=== PATIENT | female | born 1985 | race Caucasian/White ===

== ENCOUNTER → 2019-10-05 07:46 | Outpatient (CLI) | payer OTHER, SELFPAY ==
--- NOTE | ~2019-10-05 | MMUS_ITS ---
EXAMINATION: MM diagnostic vani BI w dulce, US breast LT limited HISTORY: Palpable lump of the upper inner quadrant of the left breast TECHNIQUE: Craniocaudal, mediolateral, and mediolateral oblique 3-D tomosynthesis images of the breas ts were performed and synthetic 2-D images were generated. And spot compression views of the left leonard ast are also obtained. CAD analysis was submitted and interpreted. High resolution limited left breas t ultrasound was performed. COMPARISON: None, baseline BREAST PARENCHYMAL COMPOSITION: The breasts are extremely dense, which lowers the sensitivity of mamm ography. FINDINGS: MAMMOGRAPHIC FINDINGS: Right breast: There is no evidence of suspicious mass, calcification, or architectural distortion to suggest malignancy. Left breast: There is an approximately 2.1 x 1.7 cm oval, obscured, equal density mass in the anterio r third of the inner breast at the 9:00 location corresponding to the palpable abnormality of concern . No associated architectural distortion or suspicious calcification are identified. ULTRASOUND: There is a 2.0 x 1.3 cm oval, circumscribed, parallel, hypoechoic mass with no posterior features or internal vascularity at the 10:00 location 2 cm from the nipple corresponding to the palpable abnorma lity of concern. IMPRESSION: 1. Left breast mass corresponding to the palpable abnormality of concern. 2. Ultrasound-guided left breast biopsy is recommended. BI-RADS category 4, suspicious findings. Reviewed, dictated and finalized at location A. IMPRESSION: 1. Left breast mass corresponding to the palpable abnormality of concern. 2. Ultrasound-guided left breast biopsy is recommended. BI-RADS category 4, suspicious findings.
== END ==
PROVIDERS: Visit Provider Obstetrics & Gynecology
DX: N63.22 Unspecified lump in the left breast, upper inner quadrant (principal); R92.8 Other abnormal and inconclusive findings on diagnostic imaging of breast
CPT/HCPCS: 76642; 77062; 77066; G0279

== ENCOUNTER 2020-01-08 14:31 | Emergency (ER) | payer OTHER, SELFPAY ==
--- NOTE | ~2020-01-08 | CT_ITS ---
EXAMINATION: CT abdomen pelvis w con DATE: 01/08/2020 16:11 INDICATION: Low abdominal pain. TECHNIQUE: Computed tomography (CT) of the abdomen and pelvis was performed with 100 mL Omnipaque 350 intravenous contrast. Automated exposure control and iterative reconstruction technique were employe d. The dose-length product was 328.67 mGy-cm. COMPARISON: None. FINDINGS: The visualized portions of the lung bases are clear without pneumonia or pleural effusion. The heart size is normal. No pericardial effusion. The liver, gallbladder, spleen, pancreas, adrenal glands, and kidneys are normal. There are no dilated loops of bowel. The appendix is normal. There is a small umbilical hernia containing fat. There are no pathologically enlarged lymph nodes. There is no free intraperitoneal fluid. There is mild lumbar spondylosis. IMPRESSION: 1. Small umbilical hernia containing fat. Reviewed, dictated and finalized at location A.
[2020-01-08 14:37] VITALS: BP 127/81; PULSE 112; RESP 18; TEMP 37.4; O2SAT 100
--- NOTE | 2020-01-08 15:00 | ED.ABDPAIN ---
HPI - Abdominal Pain General Chief Complaint: Abdominal Pain Stated Complaint: abdominal pain Time Seen by Provider: 01/08/20 14:42 Source: patient Mode of arrival: ambulatory Limitations: no limitations History of Present Illness HPI narrative: This patient is a 34 year old female who presents for evaluation of GI symptoms. She reports she has been having diarrhea intermittently for 3-4 weeks. She denies bloody diarrhea or fever. She does reports nausea whenever she eats. She also has intermittent sharp pelvic pain. She was evaluated by her fishing reel assembler regarding pelvic pain and she was having vaginal pain as well. She states her vaginal pain resolved but she thinks it has now moved to rectal pain. She denies rectal bleeding but she report intermittent throbbing discomfort. MD elicited complaint: abdominal pain Related Data Home Medications Medication Instructions Recorded Confirmed buspirone 10 mg PO DAILY 01/08/20 Allergies Allergy/AdvReac Type Severity Reaction Status Date / Time No Known Allergies Allergy Verified 01/08/20 14:39 Review of Systems Review of Systems: All systems reviewed & are unremarkable except as noted in HPI and below Constitutional: Constitutional: Denies chills, Reports fatigue and Denies fever(s) ENT: Denies dizziness and Denies sore throat Cardiovascular: Cardiovascular: Denies chest pain Respiratory: Respiratory: Denies cough and Denies dyspnea Gastrointestinal: Gastrointestinal: Reports abdominal pain, Reports diarrhea and Reports nausea Genitourinary: Genitourinary: Denies hematuria, Denies nocturia, Denies dysuria, Reports pelvic pain and Denies vaginal discharge Musculoskeletal: Musculoskeletal: Denies back pain Neurologic: Denies headache(s) and Denies numbness PMFSH Past Medical History Medical History Anemia Anxiety delivery delivered (~2006) Surgical History Surgical History Hx of tubal ligation (~2013) Social History Social History Smoking status: Never smoker Alcohol intake: never Gender identity (if verbalized by the patient): Female Exam Narrative: Exam Narrative: GENERAL: Well-appearing, well-nourished, and in no acute distress. HEAD: Normocephalic, atraumatic EYES: PERRLA and EOMI, conjunctiva clear without discharge EARS: TM's clear bilaterally without erythema or dullness NOSE: Nares clear, no rhinorrhea or epistaxis THROAT:Mucous membranes moist, Oropharynx normal without erythema, exudate, peritonsillar swelling or fluctuance NECK: Supple, without lymphadenopathy or mass RESPIRATORY: No respiratory distress, Airway patent, Respirations non-labored, Clear to auscultation without rales, rhonchi or wheeze HEART: Regular rate and rhythm. No murmur heard. Normal peripheral pulses. ABDOMEN: Soft, nontender, nondistended, normal active bowel sounds. No masses. No rebound or guarding, No organomegaly. EXTREMITIES: No edema, normal strength with full range of motion. SKIN: Warm, dry, normal color without rash NEURO: Alert and oriented x3. CN 2-12 grossly intact. No focal deficits. PSYCH: Normal mood and affect. GI: Other: rectal exam, no external hemorrhoids, no mass, guaic negative Course Reevaluation(s) Reevaluation #1: I have discussed with patient that labs and CT are unremarkable. She has follow up appointment with PCP. I will prescribed zofran and she will start taking medication such as prilosec. Will also swab for COVID Date: 01/08/20 Time: 16:35 Vital Signs Vital signs: Vital Signs Temperature 99.4 F 01/08/20 14:37 Pulse Rate 112 H 01/08/20 14:37 Respiratory Rate 18 01/08/20 14:37 Blood Pressure 127/81 01/08/20 14:37 Pulse Oximetry 100 01/08/20 14:37 Temperature 99.4 F 01/08/20 14:37 Pulse Rate 75 12/26
[2020-01-08 15:08] LABS: Basophils Percent Auto 0.4 % (0.2-1.2); Eosinophils Absolute Auto 0.1 K/mm3 (0-0.3); Hematocrit 41.3 % (37.0-47.0); Hemoglobin 13.5 g/dL (12.0-15.0); Immature Granulocyte Absolute 0.01 K/mm3 (0.00-0.031); Immature Granulocyte Percent A 0.1 % (0-0.5); Lymphocytes Absolute Auto 1.56 K/mm3 (0.9-3.2); Lymphocytes Percent Auto 19.8 % (18.3-44.2); Mean Corpuscular HGB Conc 32.7 g/dl (32-36); Mean Corpuscular Hemoglobin 28.4 pg (26-34); Mean Corpuscular Volume 86.9 fl (80-100); Mean Platelet Volume 10.9 fl (7.4-10.4); Monocytes Absolute Auto 0.7 K/mm3 (0.1-0.6); Monocytes Percent Auto 8.4 % (2.6-8.5); Neutrophils Absolute Auto 5.5 K/mm3 (1.3-6.7); Neutrophils Percent Auto 70.3 % (45.5-73.1); Platelet Count Result 231 k/mm3 (150-375); Red Blood Count 4.75 M/mm3 (4.2-5.4); Red Cell Distribution Width 13.4 % (11.5-14.5); White Blood Count 7.9 K/mm3 (4.5-10.0)
[2020-01-08 15:11] LABS: Add Urine Microscopic? YES; Appearance Urine Clear (Clear); Bacteria Urine Trace /hpf; Bilirubin Urine Negative (Negative); Blood Urine Negative (Negative); Color Urine Yellow (Yellow); Glucose Urine UA Negative (Negative); Ketones Urine 1+ mg/dL (Negative); Leukocyte Esterase Ur Negative LEU/UL (Negative); Mucus Urine Rare /lpf; Nitrate Urine Negative (Negative); Protein Urine Negative (Negative); RBC Urine 0-2 /hpf (0-2); Specific Grav Ur 1.024 (1.001-1.035); Squamous Epithelial Cell Urine Many /hpf (Few); Urobilinogen Urine Negative mg/dL (<2.0); WBC Urine 0-3 /hpf
[2020-01-08 15:19] LABS: Alanine Aminotransferase 14 U/L (4-35); Albumin Level 4.8 g/dL (3.5-5.1); Alkaline Phosphatase 59 U/L (38-126); Aspartate Amino Transferase 16 U/L (14-36); Bilirubin,Total 0.7 mg/dL (0.2-1.3); Blood Urea Nitrogen 12 mg/dL (7-17); Calcium 9.4 mg/dL (8.4-10.2); Carbon Dioxide 26 mmol/L (22-30); Chloride 105 mmol/L (98-107); Estimated CRCL calculation 93 ml/min; Estimated Glomerular Filt Rate > 60; Glucose 101 mg/dL (65-105); Lipase 156 U/L (23-300); Potassium 3.4 mmol/L (3.4-5.0); Sodium 139 mmol/L (137-145)
[2020-01-08 15:23] LABS: Lactic Acid Reflex 1.4 mmol/L (0.7-2.1)
[2020-01-08] MEDS: PANTOPRAZOLE SODIUM IV 40 MG VIAL IV PUSH (15:24)
[2020-01-08] MEDS: LACTATED RINGERS 1,000 ML 999 ML IV CONT (15:24)
[2020-01-08] MEDS: ONDANSETRON INJ 4 MG/2 ML VIAL IV PUSH (15:24)
[2020-01-08 16:19] VITALS: BP 123/87; PULSE 83; RESP 16; O2SAT 100
[2020-01-08 17:19] VITALS: BP 115/76; PULSE 75; RESP 16; O2SAT 99
[2020-01-10 11:10] LABS: SARS-CoV-2 RNA PCR Negative
== END 2020-01-08 17:34 | disposition home or self-care (01) ==
PROVIDERS: Emergency Provider General Practice; PCP Family Medicine
DX: R19.7 Diarrhea, unspecified (principal); R11.0 Nausea; Z20.828 Contact with and (suspected) exposure to other viral communicable diseases; F41.9 Anxiety disorder, unspecified; Z86.2 Personal history of diseases of the blood and blood-forming organs and certain disorders involving the immune mechanism; K42.9 Umbilical hernia without obstruction or gangrene
CPT/HCPCS: 36415; 74177; 80053; 81001; 81025; 83605; 83690; 85025; 87635; 96361; 96374; 96375; 99284; C9113; C9803; J2405; J7120; Q9967; U0003

== ENCOUNTER → 2020-05-26 10:58 | Outpatient (CLI) | payer OTHER, SELFPAY ==
--- NOTE | ~2020-05-26 | MR_ITS ---
EXAMINATION: MR lumbar spine wo con DATE: 05/26/2020 12:00 INDICATION: Right-sided low back pain. TECHNIQUE: Magnetic resonance imaging (MRI) of the lumbar spine was performed without intravenous con trast. Sequences included sagittal T2-weighted FSE, sagittal T2-weighted FS FSE, sagittal T1-weighted FSE, and axial T2-weighted FSE. COMPARISON: None FINDINGS: Bone alignment is normal. Vertebral body heights and intervertebral disc heights are normal . The distal spinal cord signal intensity is normal. The conus medullaris is at T12-L1. The following disc levels are specifically discussed: L1-L2: The disc does not extend beyond the endplate margin. There is mild bilateral facet joint osteo arthritis. There is no neural foraminal stenosis. There is no central canal stenosis. L2-L3: The disc does not extend beyond the endplate margin. There is mild bilateral facet joint osteo arthritis. There is no neural foraminal stenosis. There is no central canal stenosis. L3-L4: The disc does not extend beyond the endplate margin. There is mild bilateral facet joint osteo arthritis. There is no neural foraminal stenosis. There is no central canal stenosis. L4-L5: The disc is bulging and has an annular fissure. There is mild bilateral facet joint osteoarthr itis. There is mild bilateral neural foraminal stenosis. There is mild central canal stenosis. L5-S1: There is a left foraminal protrusion with annular fissure. There is mild bilateral facet joint osteoarthritis. There is mild left neural foraminal stenosis. There is no central canal stenosis. IMPRESSION: 1. Mild lumbar spondylosis. Reviewed, dictated and finalized at location A. IMPRESSION: 1. Mild lumbar spondylosis.
== END ==
PROVIDERS: PCP Family Medicine
DX: M54.30 Sciatica, unspecified side (principal); M47.896 Other spondylosis, lumbar region
CPT/HCPCS: 72148

== ENCOUNTER → 2020-06-09 12:04 | Outpatient (CLI) | payer OTHER, SELFPAY ==
--- NOTE | ~2020-06-09 | XR_ITS ---
EXAMINATION: XR hip RT min 2V DATE: 06/09/2020 13:07 INDICATION: Right hip pain. TECHNIQUE: 2 views of right hip were obtained. COMPARISON: None. FINDINGS: Bone alignment is normal. No fracture. Joint spaces are normal. IMPRESSION: 1. Normal right hip. Reviewed, dictated and finalized at location A. 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 Normal right hip.
== END ==
PROVIDERS: Visit Provider Anesthesiology
DX: M25.551 Pain in right hip (principal)
CPT/HCPCS: 73502

== ENCOUNTER 2023-05-29 01:14 | Day surgery (SDC) | payer OTHER, SELFPAY ==
[2023-05-21 08:48] VITALS: BMI 24.9
--- NOTE | 2023-05-28 11:58 | PM.HPGS ---
History of Present Illness History of Present Illness Consent: Risks, benefits, and alternatives have been discussed and questions answered. Patient agrees to proceed with procedure. Chief complaint: Epigastric pain, GERD w/o esophagitis Narrative: Mary Sanchez is a 38 year old female who is here for acid reflux and bloating. Past medical hx of [place] and GERD. She saw me around 3 years ago for GERD symptoms and was started on Omeprazole 20 mg daily.? She states ever since she was she has had trouble with acid reflux.? She has noticed epigastric burning along with burning around her umbilicus.? Reports constant abdominal bloating and increased gas.? She also reports has increased burping usually worse on an empty stomach.? She denies any dysphagia odynophagia but does state after she swallows food she will feel like there is increased phlegm in her throat will have to clear her throat or cough to clear it. Review of Systems Review of Systems: All systems reviewed & are unremarkable except as noted in HPI and below PMFSH Past Medical History Medical History Anemia Anxiety delivery delivered (~2006) Colon cancer screening Diarrhea Epigastric burning sensation Food allergy Gas bloat syndrome Gastroesophageal reflux disease Surgical History Surgical History Hx of tubal ligation (~2013) Family History Family History Grandparent Family history of cataracts Family history of congestive heart failure Mother Family history of arthritis Father Family history of arthritis Family history of atrial fibrillation Sibling Hypertension Social History Social History Smoking packs per day: 0.5 Smoking cigarettes per day: 10.0 Years smoked: 7 Smoking pack-years: 3.50 Smoking status: Never smoker Tobacco type: e-cigarettes/vaping Smoking end date: 08/29/06 Alcohol intake: never Alcohol use details: less than 1/month Substance use type: does not use Lack of Transportation: No Lack of Food: Never True Current Housing: I Have Housing Concerned About Future Housing: No Difficulty Paying Gas/Electric Bills: No Currently Unemployed: No Education: High School Diploma/GED Difficulty w/ Childcare or Family Care: No Living arrangements: with family Gender identity (if verbalized by the patient): Female Spiritual care concerns: No Meds Home Medications and Allergies Home Medications Medication Instructions Recorded Confirmed Type buspirone 15 mg tablet 15 mg PO TID PRN anxiety #30 tabs 05/30/22 05/29/23 Rx omeprazole 40 mg capsule,delayed 40 mg PO DAILY #30 caps 04/28/23 05/29/23 Rx release ferrous sulfate 325 mg (65 mg 325 mg PO PRN PRN anemia 05/21/23 05/29/23 History iron) tablet Allergies Allergy/AdvReac Type Severity Reaction Status Date / Time duloxetine AdvReac Severe Insomnia Verified 05/29/23 09:48 Exam Const: General: alert Orientation/consciousness: patient oriented x3 Resp: Auscultation: clear to auscultation bilaterally Cardio: Rhythm: regular rhythm GI: GI Palp: Yes Soft to palpation and No Tenderness to palpation present (GI) Neuro: General: patient oriented x3 Assessment and Plan Assessment and plan (1) Gastroesophageal reflux disease: Code(s): K21.9 - Gastro-esophageal reflux disease without esophagitis Status: Acute Assessment and Plan: EGD with possible biopsy or dilatation or cautery.
[2023-05-29 09:50] VITALS: BP 126/68; PULSE 77; RESP 16; TEMP 36.5; O2SAT 100
[2023-05-29] MEDS: LACTATED RINGERS 1,000 ML 150 ML IV CONT (10:03)
--- NOTE | 2023-05-29 10:30 | WPDANESEPPF ---
Anes - Initial Pre Proc Eval Procedure: Operation Date: 05/29/23 11:00 Proposed Procedures p Esophagogastroduodenoscopy EGD - Rodrigo Madrid MD Date/Time: 05/29/23 10:30 Surgeon: Rodrigo Madrid MD Pre Op Diagnosis: Epigastric pain, GERD w/o esophagitis Patient Data Age: 38 Gender: F Height: 1.68 m Weight: 71.7 kg Last Vital Signs Temp 97.7 F 05/29/23 09:50 Pulse 77 05/29/23 09:50 Resp 16 05/29/23 09:50 BP 126/68 05/29/23 09:50 Pulse Ox 100 05/29/23 09:50 O2 Del Method Room Air 05/29/23 09:50 Allergies Allergy/AdvReac Type Severity Reaction Status Date / Time duloxetine AdvReac Severe Insomnia Verified 05/29/23 09:48 Home Medications Medication Instructions Recorded Confirmed Type buspirone 15 mg tablet 15 mg PO TID PRN anxiety #30 tabs 05/30/22 05/29/23 Rx omeprazole 40 mg capsule,delayed 40 mg PO DAILY #30 caps 04/28/23 05/29/23 Rx release ferrous sulfate 325 mg (65 mg 325 mg PO PRN PRN anemia 05/21/23 05/29/23 History iron) tablet Patient hx anesthesia problems: none Family hx anesthesia problems: none Results Review: All pre-operative results and documents have been reviewed as part of the pre-operative evaluation. [facility] Past Medical History Medical History (Updated 05/05/23 @ 12:44 by Lori Katz APN-C) Anemia Anxiety delivery delivered (~2006) Colon cancer screening Diarrhea Epigastric burning sensation Food allergy Gas bloat syndrome Gastroesophageal reflux disease Surgical History Surgical History Hx of tubal ligation (~2013) Family History Family History Grandparent Family history of cataracts Family history of congestive heart failure Mother Family history of arthritis Father Family history of arthritis Family history of atrial fibrillation Sibling Hypertension Social History Social History Smoking packs per day: 0.5 Smoking cigarettes per day: 10.0 Years smoked: 7 Smoking pack-years: 3.50 Smoking status: Never smoker Tobacco type: e-cigarettes/vaping Smoking end date: 08/29/06 Alcohol intake: never Alcohol use details: less than 1/month Substance use type: does not use Lack of Transportation: No Lack of Food: Never True Current Housing: I Have Housing Concerned About Future Housing: No Difficulty Paying Gas/Electric Bills: No Currently Unemployed: No Education: High School Diploma/GED Difficulty w/ Childcare or Family Care: No Living arrangements: with family Gender identity (if verbalized by the patient): Female Spiritual care concerns: No Anes - Eval Final PreProcedure Day of Procedure 05/29/23 10:30 Patient weight: normal Heart: regular rate and rhythm Lungs: clear to auscultation Airway: Mallampati scale class II Neurological: alert and oriented Last oral intake: >/= 8 hours ASA classification: II Emergent: no Anesthetic plan: proceed Anesthesia type and monitoring: general GIVS and standard monitoring Results Review: All pre-operative results and documents have been reviewed as part of the pre-operative evaluation. Informed Consent: The patient's anesthetic plan and its attendant risks and benefits were discussed with the patient/family/POA. Questions were solicited and answers provided to the satisfaction of the patient/family/POA.
[2023-05-29 11:09] VITALS: BP 119/73; PULSE 66; RESP 16; O2SAT 100
[2023-05-29 11:19] VITALS: BP 130/86; PULSE 70; RESP 23; O2SAT 100
[2023-05-29 11:29] VITALS: BP 134/85; PULSE 67; RESP 18; O2SAT 100
== END 2023-05-29 11:40 | disposition home or self-care (01) ==
PROVIDERS: PCP Family Medicine; Visit Provider Internal Medicine Gastroenterology
PROC: 0DJ08ZZ Inspection of Upper Intestinal Tract, Via Natural or Artificial Opening Endoscopic (ICD-10-PCS; CPT 43235; principal; 2023-05-29 11:00)
DX: K21.00 Gastro-esophageal reflux disease with esophagitis, without bleeding (principal); K29.80 Duodenitis without bleeding; D64.9 Anemia, unspecified; Z82.49 Family history of ischemic heart disease and other diseases of the circulatory system; F41.9 Anxiety disorder, unspecified
CPT/HCPCS: 43239; 88305; J2704; J7120

== ENCOUNTER 2023-11-01 10:34 | Outpatient (CLI) | payer BC, SELFPAY ==
--- NOTE | ~2023-11-01 | MM_ITS ---
EXAMINATION: MM screening vani BI w dulce HISTORY: Screening mammogram TECHNIQUE: Craniocaudal and mediolateral oblique 3-D tomosynthesis images were obtained and synthetic 2-D images were generated. Bilateral rotated lateral CC views. CAD analysis was submitted and interp reted. COMPARISON: 10/05/2019 diagnostic left mammogram and limited left breast ultrasound BREAST PARENCHYMAL COMPOSITION: The breasts are extremely dense, which lowers the sensitivity of mamm ography. FINDINGS: 2 cm partially circumscribed low-density mass is suggested in the medial subareolar area (c oned compression craniocaudal images 32/65). The margins are partially obscured by the very dense str blake. Otherwise there is no evidence of suspicious mass, calcification, or architectural distortion to sugg est malignancy in either breast. There has been no suspicious interval change. IMPRESSION: 1. Probable 2 cm mass in the medial subareolar area of the left breast 2. Diagnostic left mammogram and left breast ultrasound examination are recommended. BI-RADS Category 0: Incomplete: Needs additional imaging evaluation. Reviewed, dictated and finalized at location B. IMPRESSION: 1. Probable 2 cm mass in the medial subareolar area of the left breast 2. Diagnostic left mammogram and left breast ultrasound examination are recomme nded. BI-RADS Category 0: Incomplete: Needs additional imaging evaluation.
== END 2023-11-01 10:35 ==
LOC: MICIMG 10:37
PROVIDERS: PCP Obstetrics & Gynecology; Visit Provider Obstetrics & Gynecology
DX: Z12.31 Encounter for screening mammogram for malignant neoplasm of breast (principal); R92.8 Other abnormal and inconclusive findings on diagnostic imaging of breast
CPT/HCPCS: 77063; 77067

== ENCOUNTER 2023-12-08 08:13 | Outpatient (CLI) | payer BC, SELFPAY ==
--- NOTE | ~2023-12-08 | MMUS_ITS ---
EXAMINATION: MM diagnostic vani LT w dulce, US breast LT complete HISTORY: Probable 2 cm mass reportedly medial subareolar area of the left breast on November 01, 2023 scr eening mammogram TECHNIQUE: Additional 3-D tomosynthesis images of the left breast were performed and synthetic 2-D im ages were generated. CAD analysis was submitted and interpreted. High resolution complete left breast ultrasound examination including all 4 quadrants and subareolar area was performed. COMPARISON: 10/05/2019 bilateral diagnostic mammogram and Limited left breast ultrasound BREAST PARENCHYMAL COMPOSITION: The breasts are heterogeneously dense, which may obscure small masses . FINDINGS: MAMMOGRAPHIC FINDINGS: Approximately 1.3 by 2.4 cm mass is noted in the mid medial subareolar area of the left breast, a bio psy marker. There is a report of previous benign left breast biopsy in September 2019. The heterogeneously dense stroma may obscure masses. Complete left breast ultrasound examination was performed. ULTRASOUND: 4:00 6 cm from nipple, there is well-circumscribed hypoechoic 2.3 x 3.6 x 5.8 mm solid lesion without internal vascular area posterior shadowing, benign in appearance 9:00 subareolar area: 1.4 x 1.8 x 2.4 cm well-circumscribed hypoechoic mass with biopsy marker. No in ternal vascularity on color flow imaging. No significant posterior features. No significant change si nce 10/05/2019. IMPRESSION: 1. Benign findings 2. Routine annual mammographic screening is recommended BI-RADS Category 2: Benign finding(s). Reviewed, dictated and finalized at location A. IMPRESSION: 1. Benign findings 2. Routine annual mammographic screening is recommended BI-RADS Category 2: Benign finding(s).
== END 2023-12-08 08:14 ==
LOC: MICIMG 08:15
PROVIDERS: PCP Obstetrics & Gynecology; Visit Provider Obstetrics & Gynecology
DX: R92.8 Other abnormal and inconclusive findings on diagnostic imaging of breast (principal)
CPT/HCPCS: 76641; 77061; 77065; G0279

== ENCOUNTER 2025-02-18 13:27 | Outpatient (CLI) | payer BC, SELFPAY ==
--- NOTE | ~2025-02-18 | MM_ITS ---
EXAMINATION: MM screening [facility] BI w dulce HISTORY: Screening TECHNIQUE: Craniocaudal and mediolateral oblique 3-D tomosynthesis images were obtained and synthetic 2-D images were generated. CAD analysis was submitted and interpreted. COMPARISON: Comparison to multiple prior studies sequentially, with oldest reviewed study dated 10/04. BREAST PARENCHYMAL COMPOSITION: Dense: The breasts are extremely dense, which lowers the sensitivity of mammography. FINDINGS: Stable left periareolar mass, previously biopsy-proven benign. There is no evidence of susp icious mass, calcification, or architectural distortion to suggest malignancy in either breast. There has been no suspicious interval change. IMPRESSION: 1. No mammographic evidence of malignancy. 2. Recommend routine screening mammography in one year. BI-RADS Category 2: Benign finding(s). Reviewed, dictated and finalized at location A.
== END 2025-02-18 13:28 | disposition home or self-care (01) ==
LOC: MICIMG 13:27
PROVIDERS: PCP Obstetrics & Gynecology; Visit Provider Obstetrics & Gynecology
DX: Z12.31 Encounter for screening mammogram for malignant neoplasm of breast (principal)
CPT/HCPCS: 77063; 77067

== ENCOUNTER 2025-06-01 08:02 | Emergency (ER) | payer BC, SELFPAY ==
--- NOTE | ~2025-06-01 | XR_ITS ---
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 Findings: No acute fracture or malalignment. No significant degenerative changes. Soft tissues unremarkable. Impression: No acute fracture or malalignment. Reviewed, dictated and finalized at location P. ENTICE PLUMBER Impression: No acute fracture or malalignment.
--- NOTE | ~2025-06-01 | XR_ITS ---
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 Findings: No acute fracture or malalignment. No significant degenerative changes. Soft tissues unremarkable. Impression: No acute fracture or malalignment. Reviewed, dictated and finalized at location P. DLE CUT OFF SAW OPERATOR Impression: No acute fracture or malalignment.
--- OUTSIDE RECORDS SUMMARY | 2025-06-01 08:08 | XMS_ITS | Clinical Summary ---
Author Organization [facility] Address [address] [place] [address] Care Team Providers Care Senior Drupal Developer Name Role Phone Claritza Clay MD Primary Care Provider [phone] Source Comments [facility],non-owned Affiliates and Associated Physician Practices is amultiple site organization consisting of ambulatory clinics and hospital sitesin [place], [place], [place] and [place]. This disclosure is being madepursuant to the Care Everywhere program and may not contain all information available regarding this patient. Last updated 18.[facility] Allergies No known active allergies Medications * Be aware that medications may not be up to date on this document. Alwaysverify current medications with the patient. 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 Gender Identity Not on file Sexual Orientation Not on file Last Filed Vital Signs Vital Sign Reading Time Taken Comments Blood Pressure 112/68 03/15/2020 10:15 AM CDT Pulse 91 03/15/2020 10:15 AM CDT Temperature 36.9 C (98.4 F) 03/15/2020 10:15 AM CDT Respiratory Rate 16 03/15/2020 10:15 AM CDT Oxygen Saturation 98% 03/15/2020 10:15 AM CDT Inhaled Oxygen Concentration - - Weight 69.9 kg (154 lb) 03/15/2020 10:15 AM CDT Height 170.2 cm (5' 7) 03/15/2020 10:15 AM CDT Body Mass Index 24.12 03/15/2020 10:15 AM CDT Plan of Treatment Health Maintenance Due Date Last Done Comments LIPID TESTING 1983 MAMMOGRAM 1983 HIV SCREENING 1998 HEPATITIS C SCREENING 02/22/2001 DTAP/TDAP/TD VACCINES (1 - Tdap) 2002 HEPATITIS B VACCINE (1 of 3 - 19+ 3-dose series) 2002 PAP SMEAR 02/28/2004 HPV VACCINE (1 - 3-dose SCDM series) 2010 DEPRESSION SCREENING 07/28/2024 COVID-19 VACCINE (1 - 2023-2 5 season) 2025 INFLUENZA VACCINE (#1) 2025 ZOSTER VACCINE (1 of 2) 2033 HIB VACCINE Aged Out No longer eligi ble based on patient's age to complete this topic MENINGOCOCCAL (Group B) VACC INE SHARED DECISION-MAKING Aged Out No longer eligibl e based on patient's age to complete this topic MENINGOCOCCAL GROUPS A/C/Y/W VACCINE Aged Out No longer eligible b ased on patient's age to complete this topic PNEUMOCOCCAL VACCINE Aged Out No long er eligible based on patient's age to complete this topic Insurance AETNA AETNA Care Teams Senior Drupal Developer Relationship Specialty Start Date End Date Claritza Clay MD [address] [place], [place] [id number] PCP - General Family Medicine 08/24/17
[2025-06-01 08:11] VITALS: BP 130/74; PULSE 78; RESP 16; TEMP 36.2; O2SAT 100
--- OUTSIDE RECORDS SUMMARY | 2025-06-01 09:43 | XMS_ITS | Clinical Summary ---
Author Organization [facility] Address [address] [place] [address] Care Team Providers Care Shoe Stamper Name Role Phone Claritza Clay MD Primary Care Provider [phone] Source Comments [facility],non-owned Affiliates and Associated Physician Practices is amultiple site organization consisting of ambulatory clinics and hospital sitesin [place], [place], [place] and [place]. This disclosure is being madepursuant to the Care Everywhere program and may not contain all information available regarding this patient. Last updated 18.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
[2025-06-01 10:22] VITALS: BP 135/73; PULSE 68; RESP 18; O2SAT 100
--- NOTE | 2025-06-01 10:27 | ED.GENADULT ---
HPI - General Adult General Chief complaint: Extremity Injury, Lower Stated complaint: L foot injury Time Seen by Provider: 06/01/25 09:02 History of Present Illness HPI narrative: A 40-year-old female presenting with left foot/ankle pain. Patient states she stepped off her stairs in her garage last night and her foot inverted and she fell. She did not hit her head and is having no other pain anywhere else. The pain from her foot woke her up in the night. Endorses lateral foot pain but denies fifth metatarsal and midfoot tenderness. Denies numbness/tingling. Related Data Allergies Allergy/AdvReac Type Severity Reaction Status Date / Time duloxetine AdvReac Severe Insomnia Verified 05/12/25 09:19 Review of Systems Review of Systems: All systems reviewed & are unremarkable except as noted in HPI and below PMFSH Past Medical History Medical History Food allergy Colon cancer screening Diarrhea Epigastric burning sensation Gastroesophageal reflux disease Gas bloat syndrome delivery delivered (~2006) Anxiety Anemia Surgical History Surgical History Hx of tubal ligation (~2013) Family History Family History Grandparent Family history of cataracts Family history of congestive heart failure Mother Family history of arthritis Father Family history of arthritis Family history of atrial fibrillation Sibling Hypertension Social History Social History (Updated 05/12/25 @ 09:23 by Marina Sarmiento MA) Smoking packs per day: 0.5 Smoking cigarettes per day: 10.0 Years smoked: 7 Smoking pack-years: 3.50 Smoking end date: 08/29/06 Alcohol intake: former Alcohol use details: less than 1/month Substance use: never Substance use type: does not use Do You Feel Safe in your Home?: Yes Lack of Transportation: No Lack of Food: Never True Current Housing: I Have Housing Concerned About Future Housing: No Difficulty Paying Gas/Electric Bills: No Currently Unemployed: No Education: High School Diploma/GED Difficulty w/ Childcare or Family Care: No Living arrangements: with family Gender identity (if verbalized by the patient): Female Spiritual care concerns: No Exam Narrative: GENERAL: Well-appearing, well-nourished, and in no acute distress. HEAD: Normocephalic, atraumatic. EYES: PERRLA and EOMI. ENT: Nares clear, no rhinorrhea or epistaxis. Mucous membranes moist. Oropharynx without tonsillar hypertrophy exudate or other lesions. Bilateral TMs pearly enrique non-bulging NECK: Supple. No adenopathy or masses. No carotid bruits or JVD CHEST: Clear to auscultation. No respiratory distress. No wheezes rales or rhonchi HEART: Regular rate and rhythm. No murmur heard. Normal peripheral pulses. ABDOMEN: Soft, nontender, nondistended, normal active bowel sounds. EXTREMITIES: Left lateral ankle mild edema, no ecchymosis. Left ankle ROM limited by pain. Strength 5/5 bilateral ankles. Good pulses bilaterally. Sensation intact. SKIN: Warm, dry, no rash. NEURO: No focal deficits. Alert and oriented x3. PSYCH: Normal mood and affect Course Vital Signs Vital signs: Vital Signs Temperature 97.2 F L 06/01/25 08:11 Pulse Rate 78 06/01/25 08:11 Respiratory Rate 16 06/01/25 08:11 Blood Pressure 130/74 06/01/25 08:11 Pulse Oximetry 100 06/01/25 08:11 Temperature 97.2 F L 06/01/25 08:11 Pulse Rate 68 06/01/25 10:22 Respiratory Rate 18 06/01/25 10:22 Blood Pressure 135/73 06/01/25 10:22 Pulse Oximetry 100 06/01/25 10:22 Medical Decision Making [facility] Narrative Medical decision making narrative: A 40-year-old female presenting with left foot/ankle pain. Patient states she stepped off her stairs in her garage last night and her foot inverted and she fell. She did not hit her head and is having no other pain anywhere else. The pain from her foot woke her up in the night. Endorses lateral foot pain but denies fifth metatarsal and midfoot tenderness. Denies numbness/tingling. Upon my assessment patient was sitting comfortably. Bilateral lower extremities neurovascular intact. Left ankle ROM limited by pain and mild lateral swelling but no signs of ecchymosis. Strength 5/5 bilaterally. Imaging indicated no acute ankle or foot fractures/malalignment. Discussed treatment with rest/elevation, use ice/heat, take anti-inflammatories (Aleve, Ibuprofen, Naproxen, etc) or Tylenol as needed for pain. Follow up with your primary care provider. Patient comfortable with plan and d/c home. Medical Records Medical records reviewed: Yes I reviewed the external patient's medical records. Vital Signs Vital Signs: Vital Signs Temperature 97.2 F L 06/01/25 08:11 Pulse Rate 78 06/01/25 08:11 Respiratory Rate 16 06/01/25 08:11 Blood Pressure 130/74 06/01/25 08:11 Pulse Oximetry 100 06/01/25 08:11 Temperature 97.2 F L 06/01/25 08:11 Pulse Rate 68 06/01/25 10:22 Respiratory Rate 18 06/01/25 10:22 Blood Pressure 135/73 06/01/25 10:22 Pulse Oximetry 100 06/01/25 10:22 Imaging Data Attestation: I personally reviewed and interpreted this imaging study as follows: Radiologist's impression: ITS Impressions Ankle X-Ray 06/01/25 08:34 Impression: No acute fracture or malalignment. Foot X-Ray 06/01/25 08:34 Impression: No acute fracture or malalignment. Discharge Plan Discharge Clinical Impression: Ankle sprain and strain Patient Disposition: Home Condition: Stable Instructions: Ankle Sprain (ED) Additional Instructions: Close f/u with PCP. Patient Language: Kittitian Prescriptions: No Action omeprazole 40 mg capsule,delayed release(DR/EC) See Rx Instructions .ROUTE .COMPLEX Qty: 90 0RF Dose Instruction: TAKE 1 CAPSULE BY MOUTH EVERY DAY Rx Instructions: TAKE 1 CAPSULE BY MOUTH EVERY DAY Follow-up/Referrals: Wai Crews MD [Primary Care Provider, Family Practice] Stand Alone Forms: Work/School Release IP
== END 2025-06-01 13:30 | disposition home or self-care (01) ==
PROVIDERS: PCP Family Medicine Adolescent Medicine
DX: S93.402A Sprain of unspecified ligament of left ankle, initial encounter (principal); S96.912A Strain of unspecified muscle and tendon at ankle and foot level, left foot, initial encounter; K21.9 Gastro-esophageal reflux disease without esophagitis; Z87.891 Personal history of nicotine dependence; W10.9XXA Fall (on) (from) unspecified stairs and steps, initial encounter
CPT/HCPCS: 73610; 73630; 99283